=== PATIENT | male | born 1930 | race Caucasian/White ===

== ENCOUNTER 2016-12-02 11:04 | Day surgery (SDC) | payer MEDICARE, BC ==
[2016-11-28 15:53] VITALS: BMI 26.5
--- NOTE | 2016-12-02 11:02 | XR ---
EXAMINATION TYPE: XR KUB DATE OF EXAM: 12/02/2016 10:53 AM CLINICAL HISTORY: Kidney stones per order. Presurgery for lithotripsy. TECHNIQUE: Single supine KUB image of the abdomen is obtained. COMPARISON: None. FINDINGS: 2 double-J ureter stents are identified. Numerous surgical clips overlie the mid to lower s acrum. No definitive renal or ureter calculi along course of stents are clearly seen. A medial course to distal stents is noted, right just crosses midline. Occasional pelvic phlebolith is noted. Some prominence of overlying fecal material makes evaluation suboptimal. Some prominent left lateral spurring in the lumbar spine is seen. IMPRESSION: Bilateral double-J ureter stents with poor visualization of suspected renal or ureter hugo culi.
[~2016-12-02 11:04] MED LIST: HYDROmorphone 1 MG/ML 1 ML SYRINGE IVP PRN; LACTATED RINGERS 1,000 ML IV SCH; ONDANSETRON 4 MG/2 ML VIAL IVP ONE; Pre Op ABX Message 1 EACH MISC MISCELLANE ONE
[2016-12-02 12:36] VITALS: TEMP 97.9
[2016-12-02] MEDS ORDERED: fentaNYL (PF) 50 MCG/ML 2 ML AMP ONE (16:02)
[2016-12-02] MEDS ORDERED: PROPOFOL 10 MG/ML 20 ML VIAL IV ONE (16:02)
[2016-12-02] MEDS ORDERED: IV FLUID CONTINUATION 1,000 ML IV ONE (17:11)
[2016-12-02 17:36] VITALS: BP 130/64; PULSE 64; RESP 18
--- NOTE | 2016-12-03 12:07 | OP ---
DATE OF SERVICE: SURGEON: ONELIA MENDENHALL MD PREOPERATIVE DIAGNOSIS: Right ureteral calculus. POSTOPERATIVE DIAGNOSIS: Right ureteral calculus. OPERATION: Extracorporeal shockwave lithotripsy of right ureteral calculus. OPERATIVE INDICATIONS: The patient is an 86-year-old male who was recently discovered to have bilateral ureteral calculi on a CT scan at [facility]. Dr. Lozada placed bilateral double-J catheters. An 8 mm calculus was present in the right ureter. ESWL has been chosen for treatment of the right ureteral calculus. DESCRIPTION OF PROCEDURE: The patient was taken the operating suite where adequate intravenous sedation was given. Patient was placed in the supine position on the fluoroscopy table. The rightt ureteral calculus was located at the region of the pelvic brim and localized using biplanar fluoroscopy. Lithotripsy was performed using the Dornier compact delta unit. Patient received 3000 shocks at a rate of 60 shocks per minute and a level of 6. It was unclear if the calculus fragmented. Anesthesia was reversed and patient was returned to the recovery room, awake and in satisfactory condition to be seen back by Dr. Lozada in one week for follow-up. LALITA
== END 2016-12-02 18:10 | disposition home or self-care (01) ==
LOC: ORWHC2ENDO 11:04
PROVIDERS: ATTEND Urology
DX: N20.1 Calculus of ureter (principal); I10 Essential (primary) hypertension; Z93.3 Colostomy status; Z85.048 Personal history of other malignant neoplasm of rectum, rectosigmoid junction, and anus; Z79.82 Long term (current) use of aspirin; Z79.899 Other long term (current) drug therapy
CPT/HCPCS: 74000; 50590; J3010; J2704

== ENCOUNTER → 2016-12-10 | Outpatient (CLI) | payer MEDICARE, BC ==
--- NOTE | 2016-12-10 14:37 | XR ---
EXAMINATION TYPE: XR KUB DATE OF EXAM: 12/10/2016 12:41 PM CLINICAL DATA: 86-year-old male post lithotripsy for right kidney stone, [facility] COMPARISON: 12/02/2016 FINDINGS: Bilateral ureteral stents remain in place. 6 mm calculus lower pole left kidney. 7 mm calculus lower pole right kidney. Nonspecific calcific densities in the right hemipelvis similar to prior. Multiple surgical clips in the pelvis. Moderate stool. Nonobstructive bowel gas pattern. IMPRESSION: 1. Bilateral ureteral stents. 2. Bilateral nephrolithiasis measuring 7 mm on the right and 6 mm on the left. 3. Similar nonspecific calcifications in the right pelvis.
== END ==
LOC: RADXRMAIN 12:18
PROVIDERS: ATTEND Urology
DX: N20.2 Calculus of kidney with calculus of ureter (principal)
CPT/HCPCS: 74000

== ENCOUNTER 2016-12-18 09:40 | Day surgery (SDC) | payer MEDICARE, BC ==
[2016-12-13 12:35] VITALS: BMI 25.9
[~2016-12-18 09:40] MED LIST changes: +FAMOTIDINE 20 MG/2 ML VIAL IV PRN; +LIDOCAINE 1% 20 ML VIAL (10MG/ML) FOR IV START INTRADERMA PRN; +MIDAZOLAM 2 MG/2 ML VIAL IV PRN; -ONDANSETRON 4 MG/2 ML VIAL IVP ONE; +ONDANSETRON 4 MG/2 ML VIAL IVP PRN; -Pre Op ABX Message 1 EACH MISC MISCELLANE ONE; +ceFAZolin 1,000 MG in DEXTROSE/WATER 1 50ML.BAG IV ONE
--- NOTE | 2016-12-18 09:47 | XR ---
EXAMINATION TYPE: XR KUB DATE OF EXAM: 12/18/2016 COMPARISON: NONE INDICATION: Kidney stone TECHNIQUE: Single view abdomen supine view FINDINGS: There is a normal bowel gas pattern. Fecal debris is in the ascending colon. Psoas margins are normal. No organomegaly is present. There is a 0.4 cm calcification at the inferior pole left kidney. Calcification may be over the right midabdomen may be within fecal debris. There may be a large 1.1 x 0.8 cm calcification overlying the mid sacrum adjacent to the right ureteral stent. Left ureteral stent is also present. Multiple surgi hugo clips are within the pelvis. IMPRESSION: 1. Bilateral ureteral stents. 2. Inferior pole left renal stone. 3. Possible distal right ureteral stone.
[2016-12-18] MEDS ORDERED: LIDOCAINE 1% 20 ML VIAL (10MG/ML) FOR IV START INTRADERMA ONE (10:53)
[2016-12-18] MEDS ORDERED: DEXAMETHASONE SOD PHOSPHATE 10 MG/ML 1 ML VIAL IV ONE (11:03)
[2016-12-18] MEDS ORDERED: MIDAZOLAM 2 MG/2 ML VIAL ONE (11:36)
[2016-12-18] MEDS ORDERED: SUCCINYLCHOLINE CHLORIDE 100 MG/5 ML SYR IV ONE (11:36)
[2016-12-18] MEDS ORDERED: LIDOCAINE 1% INJ 10MG/ML (20 ML MDV) ONE (11:36)
[2016-12-18] MEDS ORDERED: ePHEDrine 50 MG/ML 1 ML AMP ONE (11:36)
[2016-12-18] MEDS ORDERED: PROPOFOL 10 MG/ML 20 ML VIAL IV ONE (11:36)
[2016-12-18] MEDS ORDERED: LACTATED RINGERS 1,000 ML IV ONE (12:35)
--- NOTE | 2016-12-18 13:24 | P.OP ---
Date of Procedure: 12/18/16 Preoperative Diagnosis: Bilateral ureteral stones, bilateral ureteral stents Postoperative Diagnosis: Same Procedure(s) Performed: Cystoscopy and removal of right and left double-J catheters, right and left ureteroscopy with laser lithotripsy and stone basketing, replacement of 6 x 26 stents bilaterally Implants: Anesthesia: WISAM Surgeon: Guanakito Lozada Estimated Blood Loss (ml): 25 Pathology: other (Stone) Condition: stable Disposition: PACU Indications for Procedure: The patient is an 86-year-old gentleman who approximately a month ago presented to [facility] with abdominal pain. He is found to be anemic due to retroperitoneal bleed due to a fall. He also had bilateral hydronephrosis and acute renal failure with a creatinine of 4-1/2. He is found to have bilateral ureteral stones. I placed bilateral double-J catheters. The ureters are extremely tortuous. He had a 1 cm distal ureteral stone on the right flow to back up in his kidney and a 78 mm midureteral stone on the left that was highly impacted. He underwent shockwave 2 weeks ago to the right ureteral stone however I'm not sure broke very well. The KUB today shows the stone again at just above the iliac vessels. He comes for bilateral ureteroscopy Operative Findings: Description of Procedure: The patient is brought to the operating suite he is given a general endotracheal anesthesia. He's placed in lithotomy position with a sterile prep and drape. Cystoscopy Foroblique lens and 22-Pashto sheath identifies a normal urethra. The prostate is not significantly obstructed. Both ureteral orifices identified with double-J catheters emanating from each. I grasped the right double-J catheter and pulled the urethral meatus and an 035 wires passed through that stent. Over the wires and passed a 18-47-[id number] reentry sheath into the distal ureter. I pass through the sheath then a flexible ureteroscope up to what identifies a very large stone and a very dilated proximal ureter. With 3 W of energy (0.2 J and 15 Hz) dust the stone into tiny fragments. I then basket the largest fragments. Due to the edema from all the work I will replace the double-J catheter. Through the working sheath the 035 wires replaced. I removed the ureteroscope. I removed the sheath. I backloaded the wire onto the 22-Pashto sheath and Foroblique lens cystoscope. I then pass a 6 x 26 double-J catheter that coils in the renal pelvis and the bladder. I approached the left side. I remove the catheter to the urethral meatus. Through the catheters passed an 035 wire into the collecting system. Over the wires passed [id number] reentry sheath. I removed the inner sheath and passed the flexible scope up to the stone in the mid ureter. It is highly impacted. I break it into tiny pieces with a dusting technique and the same amount of energy. I'm able to liberate the ureter from obstruction. I basket the largest fragments. I then removed the outer sheath and ureteroscope and backloaded the wire onto the cystoscope and reenter another 6 x 26 double-J catheter that coils in the renal pelvis and the bladder the patient's bladder strain the patient's awake and returned recovery in good condition. Tell procedure well be discharged home upon recovery. The stents will stay in approximately 2 weeks at which case we will be removed lateral the remaining sand pass out. Blood loss is minimal
--- NOTE | 2016-12-18 13:32 | FL ---
Fluoroscopy INDICATION: Pain FINDINGS: Fluoroscopy time: 2 minutes 13 seconds. Images obtained: 1. IMPRESSIONS: 1. Documentation of fluoroscopy.
[2016-12-18 13:38] VITALS: RESP 16; TEMP 97.2
[2016-12-18 15:09] VITALS: BP 161/66; PULSE 55
== END 2016-12-18 15:19 | disposition home or self-care (01) ==
LOC: OR 09:40
PROVIDERS: ATTEND Urology
DX: N13.2 Hydronephrosis with renal and ureteral calculous obstruction (principal); Z96.0 Presence of urogenital implants; I48.0 Paroxysmal atrial fibrillation; R00.1 Bradycardia, unspecified; Z79.82 Long term (current) use of aspirin; Z79.899 Other long term (current) drug therapy; Z87.891 Personal history of nicotine dependence
CPT/HCPCS: 82365; 74000; 52356; C2625; C1769; J2250; J1100; J2405; J2001; J0690; J0330; J2704